=== PATIENT | female | born 1970 | race African-American/Black ===

== ENCOUNTER 2020-03-22 14:52 | Emergency (ER) | payer MEDICAID ==
[~2020-03-22] VITALS: Ht 162.6 cm; Wt 365.2 kg
[2020-03-22] MEDS ORDERED: SODIUM CHLORIDE 0.9% 1,000 ML IV ONE ×2 (15:13→15:38)
[2020-03-22] MEDS ORDERED: ONDANSETRON HCL 4MG/2ML INJ IV STA ×2 (15:13→15:38)
[2020-03-22] MEDS ORDERED: KETOROLAC 30MG/ML VIAL IV STA (15:38)
[2020-03-22 17:03] LABS: CLARITY URINE CLEAR (CLEAR); COLOR URINE YELLOW (YELLOW); KETONES URINE NEGATIVE (NEGATIVE); LEUKOCYTE ESTERASE URINE TRACE (NEGATIVE); NITRITE URINE NEGATIVE (NEGATIVE); OCCULT BLOOD URINE TRACE (NEGATIVE); PH URINE 6.5 (4.5-8.0); PROTEIN URINE 1+ (NEGATIVE); SPECIFIC GRAVITY URINE 1.014 (1.005-1.030); UROBILINOGEN URINE 0.2 E.U./dL (0.2-1.0)
[2020-03-22 17:22] LABS: *AMPHETAMINES SCREEN URINE NEGATIVE (NEGATIVE); *BARBITURATES SCREEN URINE NEGATIVE (NEGATIVE); *BENZODIAZEPINES SCREEN URINE NEGATIVE (NEGATIVE); CANNABINOID URINE SCREEN PRESUMTIVE POSITIVE (NEGATIVE); PHENCYCLIDINE URINE SCREEN NEGATIVE (NEGATIVE)
[2020-03-22 17:24] LABS: *COCAINE SCREEN URINE NEGATIVE (NEGATIVE); METHADONE URINE SCREEN NEGATIVE (NEGATIVE); OPIATES URINE SCREEN NEGATIVE (NEGATIVE)
[2020-03-22] MEDS ORDERED: ONDANSETRON HCL 4MG/2ML INJ IV ONE (17:30)
[2020-03-22] MEDS ORDERED: CEFTRIAXONE 1 G PREMIX 50 ML IV ONE (17:45)
[2020-03-22 17:58] LABS: BASOPHILS % 0.4 % (0.0-2.0); EOSINOPHILS % 0.5 % (0.0-5.0); HEMOGLOBIN. 16.1 g/dL (12.0-16.0); LYMPHOCYTES % 21.9 % (20.0-50.0); MEAN CORPUSCULAR HEMOGLOBIN 31.7 pg (28.0-32.0); MEAN CORPUSCULAR VOLUME 92.8 fL (81.0-99.0); MEAN PLATELET VOLUME 9.2 fl (7.4-10.4); MONOCYTES % 6.2 % (2.0-8.0); PLATELET 175 x1000/uL (130-400); RED BLOOD CELL COUNT 5.07 mill/uL (4.2-5.4); RED CELL DISTRIBUTION WIDTH 13.6 % (11.6-14.6)
[2020-03-22 18:03] LABS: CHLORIDE 109 mEq/L (98-107)
[2020-03-22 18:04] LABS: HCG SCREEN NEGATIVE
[2020-03-22 18:05] LABS: INR 1.3; PROTHROMBIN TIME 13.6 sec (9.6-11.0)
[2020-03-22 18:07] LABS: ETHANOL BLOOD < 10 mg/dL
[2020-03-22] MEDS ORDERED: METOCLOPRAMIDE HCL 10MG/2ML VIAL IV ONE (18:30)
[2020-03-22] MEDS ORDERED: IOHEXOL-300 100 ML BOTTLE ONE (19:26)
[2020-03-22] MEDS ORDERED: LORAZEPAM 1MG TABLET PO ONE (20:45)
[2020-03-23] MEDS ORDERED: LORAZEPAM 2MG/ML CPJ IV PRN (03:15)
[2020-03-23 07:57] VITALS: BP 138/88
== END 2020-03-23 08:12 | disposition left against medical advice (07) ==
LOC: ER 14:52 → EDBEDREQ 19:50 → EDBEDREQTM 19:50 → ER 03-23 08:12 → CANBEDREQ 03-23 08:16
DX: N39.0 Urinary tract infection, site not specified (principal); R74.0 Nonspecific elevation of levels of transaminase and lactic acid dehydrogenase [LDH]; Z90.49 Acquired absence of other specified parts of digestive tract; Z88.2 Allergy status to sulfonamides
CPT/HCPCS: 36415; 71045; 74177; 80053; 80305; 80320; 81003; 81025; 82962; 83690; 84484; 84703; 85025; 85610; 87086; 93005; 96361; 96365; 96375; 96376; 99285; J0696; J1885; J2060; J2405; J2765; J7030; Q9967; G0480

== ENCOUNTER 2022-11-13 09:33 | Emergency (ER) | payer MEDICAID ==
[~2022-11-13] VITALS: Ht 162.6 cm; Wt 74.0 kg
[2022-11-13] MEDS ORDERED: IBUPROFEN 600MG TABLET PO ONE (10:45)
[2022-11-13] MEDS ORDERED: TOPUD MT (11:55)
[2022-11-13 11:56] VITALS: BP 127/67
== END 2022-11-13 12:29 | disposition home or self-care (01) ==
LOC: ER 09:33
DX: M79.641 Pain in right hand (principal); I10 Essential (primary) hypertension; Z90.49 Acquired absence of other specified parts of digestive tract
CPT/HCPCS: 73130; 99283

== ENCOUNTER 2023-02-25 04:57 | Emergency (ER) | payer MEDICAID ==
[~2023-02-25] VITALS: Ht 162.6 cm; Wt 73.0 kg
[~2023-02-25 04:57] MED LIST: TOPUD MT
[2023-02-25 05:40] VITALS: BP 133/91
[2023-02-25] MEDS ORDERED: FAMOTIDINE 20MG/2ML VIAL IV STA (05:41)
[2023-02-25] MEDS ORDERED: KETOROLAC 30MG/ML VIAL IV STA (05:41)
[2023-02-25] MEDS ORDERED: ONDANSETRON HCL 4MG/2ML INJ IV STA (05:41)
[2023-02-25 07:02] LABS: CHLORIDE 112 mEq/L (98-107)
[2023-02-25 07:13] LABS: BASOPHILS % 0.8 % (0.0-2.0); EOSINOPHILS % 1.3 % (0.0-5.0); HEMATOCRIT. 39.8 % (36.0-48.0); LYMPHOCYTES % 39.5 % (20.0-50.0); MEAN CORPUSCULAR HEMOGLOBIN 32.1 pg (28.0-32.0); MEAN CORPUSCULAR VOLUME 91.3 fL (81.0-99.0); MEAN PLATELET VOLUME 9.1 fl (7.4-10.4); NEUTROPHILS % 50.4 % (40.0-76.0); PLATELET 207 x1000/uL (130-400); RED BLOOD CELL COUNT 4.36 mill/uL (4.2-5.4); RED CELL DISTRIBUTION WIDTH 13.4 % (11.6-14.6)
[2023-02-25] MEDS ORDERED: ONDA4TAB50 PO (07:27)
[2023-02-25] MEDS ORDERED: TOPUD PO (07:27)
[2023-02-25 07:42] LABS: HCG SCREEN NEGATIVE
== END 2023-02-25 07:43 | disposition left against medical advice (07) ==
LOC: ER 04:57
DX: R10.13 Epigastric pain (principal); J45.909 Unspecified asthma, uncomplicated; Z88.6 Allergy status to analgesic agent; Z98.890 Other specified postprocedural states
CPT/HCPCS: 36415; 80053; 83690; 84484; 84703; 85025; 96374; 96375; 99284; J1885; J2405; J3490; Z7610

== ENCOUNTER 2023-05-02 15:52 | Emergency (ER) | payer MEDICAID, OTHER ==
[~2023-05-02] VITALS: Ht 162.6 cm; Wt 76.0 kg
[~2023-05-02 15:52] MED LIST changes: +ONDA4TAB50 PO; +TOPUD PO
[2023-05-02 15:54] VITALS: TEMP 98.4; O2SAT 100
[2023-05-02] MEDS ORDERED: ONDANSETRON HCL 4MG/2ML INJ IV ONE (16:15)
[2023-05-02] MEDS ORDERED: SODIUM CHLORIDE 0.9% 1,000 ML IV ONE (16:15)
[2023-05-02] MEDS ORDERED: KETOROLAC 30MG/ML VIAL IV ONE (16:30)
[2023-05-02 16:38] LABS: BASOPHILS % 0.5 % (0.0-2.0); EOSINOPHILS % 0.4 % (0.0-5.0); HEMATOCRIT. 39.9 % (36.0-48.0); HEMOGLOBIN. 13.6 g/dL (12.0-16.0); LYMPHOCYTES % 17.8 % (20.0-50.0); MEAN CORPUSCULAR HEMOGLOBIN 31.4 pg (28.0-32.0); MEAN CORPUSCULAR VOLUME 92.3 fL (81.0-99.0); MEAN PLATELET VOLUME 8.5 fl (7.4-10.4); MONOCYTES % 10.4 % (2.0-8.0); NEUTROPHILS % 70.9 % (40.0-76.0); PLATELET 184 x1000/uL (130-400); RED BLOOD CELL COUNT 4.32 mill/uL (4.2-5.4); RED CELL DISTRIBUTION WIDTH 13.4 % (11.6-14.6)
[2023-05-02 16:44] LABS: CHLORIDE 111 mEq/L (98-107)
[2023-05-02 16:55] LABS: HCG SCREEN NEGATIVE
[2023-05-02] MEDS ORDERED: MORPHINE SULFATE 4 MG/ML CPJ (NOT FOR IM USE) IV ONE (18:30)
[2023-05-02] MEDS ORDERED: FAMO-135 MT (18:50)
[2023-05-02 19:02] VITALS: BP 148/78; PULSE 79; RESP 18
== END 2023-05-02 19:14 | disposition home or self-care (01) ==
LOC: ER 15:53
DX: R10.84 Generalized abdominal pain (principal); N17.9 Acute kidney failure, unspecified; J45.909 Unspecified asthma, uncomplicated; Z88.5 Allergy status to narcotic agent; Z88.2 Allergy status to sulfonamides
CPT/HCPCS: 36415; 71045; 74176; 80053; 82962; 84484; 84703; 85025; 93005; 96361; 96374; 96375; 99285; J1885; J2270; J2405; J7030